=== PATIENT | female | born 1935 | race Caucasian/White ===

== ENCOUNTER 2018-11-29 10:20 | Emergency (ER) | payer OTHER ==
[~2018-11-29] VITALS: Ht 147.3 cm; Wt 57.6 kg
[2018-11-29 10:47] VITALS: Ht 147.3 cm; Wt 57.6 kg
[2018-11-29 12:25] VITALS: BP 124/74
== END 2018-11-29 12:25 | disposition home or self-care (01) ==
LOC: ED 10:20
DX: J06.9 Acute upper respiratory infection, unspecified (principal)